=== PATIENT | female | born 1940 | race Caucasian/White ===

== ENCOUNTER 2020-01-17 13:24 | Inpatient (IN) | payer MEDICARE, OTHER ==
[~2020-01-17] VITALS: Ht 157.5 cm
[2020-01-17] MEDS ORDERED: ASPIRIN81 MG PO (13:32)
[2020-01-17] MEDS ORDERED: CALCIUM 600 +1 EAC3 PO (13:33)
[2020-01-17] MEDS ORDERED: MULTI-DAY VITAM1 TAB PO (13:33)
[2020-01-17] MEDS ORDERED: SYNTHROID75 MCG PO (13:34)
[2020-01-17] MEDS ORDERED: CELEXA10 MG PO (13:34)
[2020-01-17] MEDS ORDERED: LISINOPRIL20 MG PO (13:34)
[2020-01-17] MEDS ORDERED: LIPITOR20 MG PO (13:35)
--- NOTE | 2020-01-17 14:05 | NUR ---
C-COLLAR PLACED ON PATIENT PER DR. JESSICA, SMCs REMAIN INTACT AFTER COLLAR APPLIED, NO NEURO DEFICITS NOTED.
[2020-01-17 14:15] LABS: CALC OSMOLALITY 261 mosm/kg (275-300); CARBON DIOXIDE 25.3 mmol/L (21.0-32.0); CHLORIDE - SERUM 95 mmol/L (98-107); CREATININE - SERUM 0.9 mg/dL (0.6-1.3); GLUCOSE 131 mg/dL (74-106); POTASSIUM - SERUM 4.1 mmol/L (3.5-5.1); SODIUM 129 mmol/L (136-145); UREA NITROGEN 16 mg/dL (7-18); eGFR NON AFRICAN AMERICAN 64 mL/min (90-120)
[2020-01-17 14:21] LABS: BASOPHILS 0.2 % (0-2); EOSINOPHILS 0.6 % (0-7); HEMOGLOBIN 13.4 g/dL (12-16); IMMATURE GRANULOCYTES 0.4 % (0-5); LYMPHOCYTES 12.4 % (15-50); MCH 29.1 pg (26.0-34.0); MCHC 32.7 g/dL (31.0-37.0); MCV 88.9 fL (80.0-100.0); MEAN PLATELET VOLUME 9.9 fL (7.4-10.4); MONOCYTES 3.7 % (2-11); NEUTROPHILS 82.7 % (40-80); PLATELET COUNT 253 10x3/uL (130-400); RBC 4.61 10x6/uL (4.00-5.40); WBC 13.3 10x3/uL (4.8-10.8)
[2020-01-17 14:24] LABS: ALBUMIN 3.3 g/dL (3.4-5.0); ALKALINE PHOSPHATASE 177 U/L (30-120); ALT (SGPT) 16 U/L (10-68); BILIRUBIN - TOTAL 0.51 mg/dL (0.2-1.3); PROTEIN - SERUM 7.1 g/dL (6.4-8.2); TROPONIN-I < 0.017 ng/mL (0.000-0.060)
[2020-01-17 14:41] LABS: INR 0.96 (0.85-1.17); PROTIME 12.7 SECONDS (11.6-15.0)
[2020-01-17 14:42] LABS: APTT 35.6 SECONDS (22.8-39.4)
--- NOTE | 2020-01-17 16:20 | NUR ---
PATIENT TRANSFERRED TO 2219, JULIA C-SPINE STABILIZATION HELD DURING TRANSFER TO BED FROM STRETCHER, SMCs REMAIN INTACT AFTER TRANSFER TO BED, NO NEURO DEFICITS NOTED.
--- NOTE | 2020-01-17 16:30 | NUR ---
RECEIVED PT TO ROOM VIA STRETCHER AND ER STAFF. PT HAS COLLAR BRACE AROUND NECK, ALERT AND ORIENTED, PT TRANSFERRED TO BED WELL WITH 4 PERSON ASSIST TO MAKE SURE PT BODY ALLIGNED WHEN MOVING. PT STILL HAS PANTS ON AND GOWN. IV TO LEFT HAND NS AT 125. SITE CDI NO EDEMA SEEN IN LEGS, ATTEMPTED TO REMOVE PT'S PANTS BEFORE SURGERY UNABLE TO DO SO WITHOUT CERTAINTY OF NOT INJURING PATIENT ANY MORE THAN PT ALREADY INJURED. PT ON RA, STATED SHE IS NOT IN DISTRESS. PLACED CL ON PT CHEST BED IN LOWEST POSITION, CONTINUE WITH PLAN OF CARE
[2020-01-17 18:12] VITALS: BP 132/56
--- NOTE | 2020-01-17 19:26 | NUR ---
DESPITE HAVING NERVE BLOCK, PACU AND OR RNS ELECTED NOT TO PLACE LUE IN SLING TO AVOID ANY PRESSURE ON C-SPINE FROM SLING.
[2020-01-17 20:00] VITALS: BP 141/84
[2020-01-17 20:01] VITALS: BP 141/84
[2020-01-18] VITALS: BP 145/86
[2020-01-18 04:00] VITALS: BP 133/89
[2020-01-18 05:33] LABS: HEMATOCRIT 38.7 % (36.0-48.0); HEMOGLOBIN 12.7 g/dL (12-16)
--- NOTE | 2020-01-18 07:40 | NUR ---
SPOKE WITH DR. RICKS ABOUT NECK BRACE. STATED THAT DR. GHOTRA SHOULD PUT IT ON PATIENT BUT IF HE DOESNT COME BY DR. RICKS WILL COME BACK AND DO IT FOR HER. PATIENT IN BED WITH IV INTACT. NO COMPLAINTS OR SIGNS OF DISTRESS. CALL LIGHT WITHIN REACH.
[2020-01-18 09:00] VITALS: BP 112/73
--- NOTE | 2020-01-18 10:08 | HP ---
PATIENT: WINSTON CUNNINGHAM MEDICAL RECORD: [id number] ACCOUNT: [id number] LOCATION:D.MS [place]9 : 38 ADMISSION DATE: 01/17/20 PCP: No PCP HISTORY AND PHYSICAL EXAMINATION DATE OF ADMISSION: 01/17/2020 CHIEF COMPLAINT: Fall, fractured wrist and neck. HISTORY OF PRESENT ILLNESS: This is an 79-year-old female that I have followed for many years. She states she [place] and had to cross a shallow ditch and somehow fell. She complained of pain to the head and neck as well as a left wrist deformity. She was taken via EMS to the Emergency Department where she was found to have type 2 odontoid fracture and a C2 fracture. She was also found to have displaced left distal radius fracture. She is admitted. Consults have been placed with Dr. Drake and Dr. Vera. PAST MEDICAL HISTORY: The patient has a history of hypertension, hyperlipidemia, hypothyroidism, and depression. PAST SURGICAL HISTORY: Cataract repair. CURRENT MEDICATIONS: Include atorvastatin 20 mg once a day, aspirin 81 mg once a day. She takes fosinopril 20/HCTZ 12.5 once a day, citalopram 40 mg once a day, levothyroxine 75 mcg once a day. ALLERGIES: SULFA. HABITS: Never smoked. No alcohol or drugs. FAMILY HISTORY: Both parents are . SOCIAL HISTORY: She is , lives alone, retired. REVIEW OF SYSTEMS: GENERAL: No major weight changes. HEENT: No particular sinus or allergy problems. RESPIRATORY: No history of asthma or emphysema. CARDIAC: No history of heart trouble. GASTROINTESTINAL: No significant diarrhea, constipation, or heartburn. GENITOURINARY: No significant urinary infections or problems. MUSCULOSKELETAL: No significant problems there. PHYSICAL EXAMINATION: VITAL SIGNS: Temperature 98.2, pulse 106, respirations 16, blood pressure 141/84. GENERAL: She is in no acute distress. She is postop ORIF of left wrist. HEENT: Grossly within normal limits. NECK: She is in a hard collar and so further exam was not done. HEART: Regular rate and rhythm. LUNGS: Clear. ABDOMEN: Soft. EXTREMITIES: No edema. The left wrist is in a dressing. NEUROLOGIC: She is awake and alert. HISTORY AND PHYSICAL [id number] WINSTON CUNNINGHAM LABORATORY DATA: CBC with a white count of 13,300, hemoglobin 13.4. Sodium 129, potassium 4.1, chloride 95, CO2 25.3, BUN 16, creatinine 0.9, glucose 131, calcium 9.0. Liver functions were okay. Troponin is less than 0.017. INR 0.96. DIAGNOSTIC DATA: Cervical spine CT showed type 2 odontoid fracture and fracture lateral mass of C1 on the left with mild extension into the left foramen transversarium. CT of the head shows no intracranial abnormality. Chest x-ray shows atelectasis. X-ray of the left wrist shows displaced fracture of the left radius consistent with Colles fracture. ASSESSMENT: Fall with left distal radius fracture and neck fracture. PLAN: Dr. Drake has taken her to the OR for ORIF of the left wrist. Dr. Vera is consulted for the neck fracture. Other tests and procedures as warranted. TRANSINT:[id number] Voice Confirmation ID: [id number] DOCUMENT ID: [id number] ANUPAM HAWKINS MD at 1008 CC: [id number] DICTATION DATE: 01/18/20932 COUNTY ASSESSOR: 01/18/20 0954 ADM IN [facility] [address] [place] [address]
[2020-01-18] MEDS ORDERED: FOSINOPRIL-HCT1 EAC1 PO (10:10)
[2020-01-18] MEDS ORDERED: LIPITOR10 MG PO (10:10)
[2020-01-18] MEDS ORDERED: CELEXA40 MG PO (10:11)
[2020-01-18 11:32] VITALS: Ht 157.5 cm
[2020-01-18 13:20] VITALS: BP 133/86
--- NOTE | 2020-01-18 15:11 | NUR ---
Abrasions and bruises noted sporatically over body. She is in a hard collar. Left wrist is wrapped/had ORIF 01/16. Wound care will monitor as needed.
[2020-01-18 16:00] VITALS: BP 145/76
--- NOTE | 2020-01-18 18:55 | NUR ---
PATIENT IN BED WITH IV INTACT. NO COMPLAINTS OR SIGNS OF DISTRESS. DRESSING TO ARM CDI. NECK BRACE ON AT THIS TIME. DR. RICKS AND JESSICA CHANGED BRACE THIS AM. BSCDS ON AND WORKING. CALL LIGHT WITHIN REACH.
[2020-01-18 20:00] VITALS: BP 141/62
--- NOTE | 2020-01-18 20:00 | NUR ---
PATIENT RESTING IN BED, HOB 40 DEGREES. NO S/S OF ACUTE DISTRESS. NO C/O AT THIS TIME. PATIENT IS ON 4L NASAL CANNULA. PATIENT HAS IV IN RIGHT WRIST, 1/2 NORMAL SALINE @ 50 ML/HR. IV IS PATENT WITHOUT REDNESS, SWELLING, OR TENDERNESS. PATIENT HAS TELEMETRY: 75 SINUS RYTHM. PATIENT LEFT WRIST IS IN A CAST. PATIENT NECK IS IN A BRACE DUE TO C1 FX. PATIENT IS USING BED MODI. CALL LIGHT WITHIN REACH. WILL CONTINUE TO MONITOR.
--- NOTE | 2020-01-18 23:59 | NUR ---
HIGHWAY ENGINEERING TEACHER CALLED AND MED SURG II WAS IN NEED TO TELEMETRY. PER JAIME SHE ASKED FOR ME TO DC SINCE PATIENT HAS NO HEART HX. CALL LIGHT WITHIN REACH. WILL CONTINUE TO MONITOR.
[2020-01-19] VITALS: BP 136/59
[2020-01-19 04:00] VITALS: BP 148/67
--- NOTE | 2020-01-19 04:17 | NUR ---
I have reviewed this patient and I concur with the Shift Assessment completed by the Licensed Practical Nurse today this shift.
[2020-01-19 06:38] LABS: HEMATOCRIT 38.3 % (36.0-48.0); HEMOGLOBIN 12.5 g/dL (12-16)
[2020-01-19 08:00] VITALS: BP 141/65
--- NOTE | 2020-01-19 08:00 | NUR ---
ASSESSMENT PER FLOW SHEET. PATIENT IS WITHOUT DISTRESS.FALL PREVENTION WITH MARIBELL.ASSIST WITH BEDPAN. DOOR OPEN TO MONITOR
[2020-01-19 12:00] VITALS: BP 144/62
[2020-01-19 16:00] VITALS: BP 144/65
[2020-01-19 17:17] LABS: BILIRUBIN NEGATIVE (NEGATIVE); GLUCOSE NEGATIVE (NEGATIVE); KETONE SMALL mg/dL (NEGATIVE); NITRITE NEGATIVE (NEGATIVE); UROBILINOGEN NORMAL (NORMAL)
[2020-01-19 17:19] LABS: RED CELLS - URINE 0-5 /hpf (0-5)
[2020-01-19 17:20] LABS: BACTERIA FEW /hpf (NEGATIVE); EPITHELIAL CELLS 0-5 /hpf (0-5)
--- NOTE | 2020-01-19 18:54 | NUR ---
REMAINS WITHOUT NEEDS,WITHOUT CHANGE. CONT PLAN OF CARE
[2020-01-19 20:00] VITALS: BP 150/63
--- NOTE | 2020-01-19 20:00 | NUR ---
PATIENT IS IN BED WITH EYES CLOSED. NO S/S OF ACUTE DISTRESS. NO C/O AT THIS TIME. PATIENT HAS A RIGHT HAND IV, NORMAL SALINE @ 50 ML/HR. IV IS PATENT WITHOUT REDNESS, SWELLING, OR TENDERNESS. PATIENT HAS A CAST ON LEFT HAND AND BRUISING TO ALL THE FINGERS ON THE LEFT HAND. PATIENT IS IN A NECK BRACE BECAUSE OF A C1 FX. PATIENT USES BED MODI. CALL LIGHT IN PLACE. BED ALARM ON. WILL CONTINUE TO MONITOR.
[2020-01-20] VITALS: BP 145/67
--- NOTE | 2020-01-20 03:01 | NUR ---
I have reviewed this patient and I concur with the Shift Assessment completed by the Licensed Practical Nurse today this shift.
[2020-01-20 04:00] VITALS: BP 165/70
[2020-01-20 05:34] LABS: HEMATOCRIT 38.6 % (36.0-48.0); HEMOGLOBIN 12.5 g/dL (12-16)
[2020-01-20 08:00] VITALS: BP 141/75
--- NOTE | 2020-01-20 08:00 | NUR ---
ASSESSMENT PER FLOW SHEET. PATIENT IS WITHOUT DISTRESS. ASSIST UP TO CHAIR.FALL PREVENTION IN PLACE
[2020-01-20 12:00] VITALS: BP 144/68
--- NOTE | 2020-01-20 14:30 | NUR ---
PAGE TO RN ON SITE. PATIENT COMPLAINS OF SEVERE HEADACHE,SHORTNESS OF BREATH. AND STARTS SWEATING WITH DIZZINESS.
--- NOTE | 2020-01-20 15:10 | NUR ---
rehab prescreen: thank you for this eval, we are monitoring this patient and her progress unsure is she is going to be approiate for irf she may need a more termite control representative rehab facility. will notify after it has been discussed with case management. once again thank you for this eval. nithya brunner clinical liasion
--- NOTE | 2020-01-20 15:32 | NUR ---
RE PAGE TO MANAGER HOSPITALITY.
[2020-01-20 15:52] VITALS: BP 131/65
[2020-01-20 16:34] LABS: ANION GAP 12.3 mmol/L (8-16); CALCIUM 8.1 mg/dL (8.5-10.1); CARBON DIOXIDE 23.4 mmol/L (21.0-32.0); CREATININE - SERUM 0.8 mg/dL (0.6-1.3); POTASSIUM - SERUM 3.7 mmol/L (3.5-5.1)
[2020-01-20 16:44] LABS: BASOPHILS 0.1 % (0-2); EOSINOPHILS 0.2 % (0-7); HEMATOCRIT 41.1 % (36.0-48.0); HEMOGLOBIN 13.9 g/dL (12-16); IMMATURE GRANULOCYTES 0.4 % (0-5); LYMPHOCYTES 11.3 % (15-50); MCH 29.6 pg (26.0-34.0); MCHC 33.8 g/dL (31.0-37.0); MCV 87.4 fL (80.0-100.0); MEAN PLATELET VOLUME 10.3 fL (7.4-10.4); MONOCYTES 3.7 % (2-11); NEUTROPHILS 84.3 % (40-80); RDW 12.6 % (11.5-14.5); WBC 13.7 10x3/uL (4.8-10.8)
[2020-01-20 16:45] LABS: PLATELET COUNT 163 10x3/uL (130-400)
--- NOTE | 2020-01-20 17:49 | NUR ---
PATIENT REMAINS WITHOUT DISTRESS.PAGE TO SPANISH INTERPRETER/TRANSLATOR TO REPORT LABS,TELEMETRY, AND EKG.
[2020-01-20 20:00] VITALS: BP 109/52
--- NOTE | 2020-01-20 20:00 | NUR ---
AAOX4. ASSESSMENT COMPLETE, SEE CHART. CURRENTLY HAS RIGHT FOREARM IV THAT IS PATENT NS @ 50. PATIENT DENIES PAIN AT THIS TIME. CURRENTLY WEARING CERVICAL COLAR AND HAS MELISA WRAP TO THE LEFT WRIST. PALPABLE PULSES AND LESS THAN THREE SECOND CAPILLARY REFILL IN UPPER EXTREMETIES. CURRENTLY WEARING 4L NC. ASSISTED WITH BEDPAN. DENIES FURTHER NEEDS AT THIS TIME. HAS CALL LIGHT CLOSE. CPOC.
[2020-01-21 00:10] VITALS: BP 102/56
--- NOTE | 2020-01-21 00:21 | NUR ---
RESTING WITH NO SIGNS OR SYMPTOMS OF DISTRESS. CALL LIGHT CLOSE. CPOC.
[2020-01-21 05:16] VITALS: BP 98/62
--- NOTE | 2020-01-21 05:26 | NUR ---
ADMINISTERING AM LEVOTHYROXINE WHEN PATIENT ASKED FOR PAIN MEDICINE. RETRIEVED PAIN MEDICINE AND PATIENT STATES THAT IT MAKES HER "LOOPY" BUT IS EFFECTIVE FOR PAIN. PATIENT STATED SHE WOULD LIKE TO TAKE HALF OF THE DOSE TO "SEE HOW THAT WORKS". ADMINISTERED 0.5 OF PERCOCET 10. WASTED OTHER HALF IN RXDESTROYER AND PYXIS WITH RAMILA MARIN, CHARGE NURSE.
[2020-01-21 06:55] LABS: CALCIUM 8.5 mg/dL (8.5-10.1); CREATININE - SERUM 0.8 mg/dL (0.6-1.3); POTASSIUM - SERUM 3.4 mmol/L (3.5-5.1)
[2020-01-21 06:57] LABS: CARBON DIOXIDE 31.4 mmol/L (21.0-32.0)
[2020-01-21 08:00] VITALS: BP 147/61
--- NOTE | 2020-01-21 08:00 | NUR ---
ASSESSMENT PER FLOW SHEET. PATIENT IS WITHOUT DISTRESS.FALL PREVENTION IN PLACE.DOOR OPEN,MONITOR.
[2020-01-21 12:00] VITALS: BP 128/65
[2020-01-21 16:00] VITALS: BP 130/57
--- NOTE | 2020-01-21 18:22 | NUR ---
PAIN CONTROLLED WITH PO PAIN MEDS ORDERED.WITHOUT CHANGE.CONT PLAN OF CARE
[2020-01-21 20:00] VITALS: BP 137/57
[2020-01-22] VITALS: BP 161/73
--- NOTE | 2020-01-22 01:10 | NUR ---
RESTING IN BED WITHNO S/S OF DISTRESS C CALLER IN PLACE CALL LIGHT IN REACH WATER IN REACH.CHECKED OFTEN FOR NEEDS AND SAFETY.
[2020-01-22 04:00] VITALS: BP 151/69
--- NOTE | 2020-01-22 07:59 | NUR ---
pt lying in bed awake, states she is having pain this morning and requests pain medication with morning meds, pt k+ is 3.4 will replete k+ also. no other needs at this time, continue with plan of care
[2020-01-22 09:07] VITALS: BP 154/62
[2020-01-22 12:26] VITALS: BP 140/59
[2020-01-22 17:10] VITALS: BP 141/56
--- NOTE | 2020-01-22 18:45 | NUR ---
I have reviewed this patient and I concur with the Shift Assessment completed by the Licensed Practical Nurse today this shift.
[2020-01-22 20:37] VITALS: BP 135/76
[2020-01-23 06:48] VITALS: BP 124/55
[2020-01-23 08:08] VITALS: BP 151/67
--- NOTE | 2020-01-23 09:57 | NUR ---
PT LYING IN BED STATED SHE NEEDED HELP WITH HER BREAKFAST AND NO ONE WAS AVAILABLE, PLACED PT CALL LIGHT IN REACH, ASKED IF I COULD POSSIBLY GET HER ANYTHING ELSE TO EAT, PT STATED SHE WAS FINE RIGHT NOW, PT DAUGHTER AT BEDSIDE, INQUIRED ON REHAB PLACEMENT. TOLD HER THAT CASE MANAGEMENT WILL BE BY TO DISCUSS WITH HER. NO OTHER NEEDS AT THIS TIME. CONTINUE WITH PLAN OF CARE
--- NOTE | 2020-01-23 10:41 | MORECARE ---
CASE MANAGEMENT DISCHARGE SUMMARY PATIENT: WINSTON CUNNINGHAM UNIT: [id number] ADM DATE: 01/17/20 AGE: 79 : 38 SEX: F ROOM/BED: D.2219 AUTHOR: PRATEEK INIGUEZ PHYSICIAN: REFERRING PHYSICIAN: ANUPAM HAWKINS MD DATE OF SERVICE: 01/23/20 Discharge Plan Patient Name: WINSTON CUNNINGHAM Facility: [facility]:[place] : 1940 Planned Disposition: Inpatient Rehab Anticipated Discharge Date: Discharge Date: Expected LOS: Initial Reviewer: [email or web address] Initial Review Date: 01/17/2020 Generated: 01/23/20 11:40 am External Providers External Provider: [facility] Contact Date: Service Request Date: Service Type: Resolution: Reviewer: Comments: Patient Name: WINSTON CUNNINGHAM Page [phone] at 1041 All edits/amendments must be made on the electronic document DICTATION DATE: 01/23/20 1040 RIVETER AUTOMOBILE BRAKES: GERMAINE 01/23/20 1040 RPT#: [id number] DC DATE: STATUS: ADM IN [facility] [address] [place] [address] END OF REPORT
--- NOTE | 2020-01-23 10:49 | MORECARE ---
CASE MANAGEMENT DISCHARGE SUMMARY PATIENT: WINSTON CUNNINGHAM UNIT: [id number] ADM DATE: 01/17/20 AGE: 79 : 38 SEX: F ROOM/BED: D.6345 AUTHOR: PRATEEK INIGUEZ PHYSICIAN: REFERRING PHYSICIAN: ANUPAM HAWKINS MD DATE OF SERVICE: 01/23/20 Discharge Plan Patient Name: WINSTON CUNNINGHAM Facility: [facility]:[place] : 1940 Planned Disposition: Inpatient Rehab Anticipated Discharge Date: Discharge Date: Expected LOS: Initial Reviewer: [email or web address] Initial Review Date: 01/17/2020 Generated: 01/23/20 11:48 am Comments DCP- Discharge Planning Updated by [email or web address]: Marlen Gilmore on 01/23/20 9:[address] Patient Name: WINSTON CUNNINGHAM Admission Status: ER Accout number: [id number] Admission Date: 01-17-2020 : 1940 Admission Diagnosis:UNSP FRACTURE OF THE LOWER END OF LEFT RADIUS, INIT Attending: ANUPAM HAWKINS Current LOS: 6 Anticipated DC Date: Planned Disposition: Inpatient Rehab Primary Insurance: MEDICARE A & B Discharge Planning Comments: CM met with patient to complete initial dc planning assessment. CM educated patient on the CM role and verbal consent given by patient to complete assessment. Patient lives at home where her son live there off and on. She is independent with her care. At discharge patient plans to return home after inpatient rehab and feels this is a safe discharge. CM discussed availability of home health, rehab services, and medical equipment. She would like to go to inpatient rehab at [facility], [place] signed and placed in chart. IMM served and explained. Referral sent to [facility] inpatient rehab. She uses a cane at home, but that is it. Patient denied known discharge needs at this time. CM will continue to follow and will assist as needed with dc plans/needs. Link Machine Operator: Marlen Gilmore DCPIA - Discharge Planning Initial Assessment Updated by [email or web address]: Marlen Gilmore on 01/23/20 10:40 am * Is the patient Alert and Oriented? Yes * How many steps to enter\exit or inside your home? * PCP SHRUTHI * [facility]acy [facility] * Preadmission Environment Home with Family * ADLs Independent * Equipment None * List name and contact numbers for known caregivers / representatives who currently or will assist patient after discharge: JESENIA (DAUGHTER) [phone] * Verbal permission to speak to the caregivers and representatives has been obtained from the patient. N/A * Community resources currently utilized None * Additional services required to return to the preadmission environment? Yes * Can the patient safely return to the preadmission environment? Yes * Has this patient been hospitalized within the prior 30 days at any hospital? No Coverage Notice Reviewer: [email or web address] Gilmore Notice Issued Date-Time: 01/23/2020 10:20 Notice Type: IM Discharge Notice Notice Delivered To: Patient Relationship to Patient: Adjunct Latin Professor Name: Delivery Method: HAND - Hand Delivered Huong Days: Prior Verbal Notification: Recipient Understood Notice: Yes Recipient Signature: Yes Med Rec Note Co-signed by Attending: Coverage Notice Comment: Reviewer: [id number] Gilmore Notice Issued Date-Time: 01/23/2020 10:20 Notice Type: Patient Choice Letter Notice Delivered To: Patient Relationship to Patient: Adjunct Latin Professor Name: Delivery Method: HAND - Hand Delivered Huong Days: Prior Verbal Notification: Recipient Understood Notice: Yes Recipient Signature: Yes Med Rec Note Co-signed by Attending: Coverage Notice Comment: [facility] inpatient rehab Last DP export: 01/23/20 9:41 a Patient Name: WINSTON CUNNINGHAM Page 18156 at 1049 All edits/amendments must be made on the electronic document DICTATION DATE: 01/23/20 1049 HAM SAWYER: GERMAINE 01/23/20 1049 RPT#: [id number] DC DATE: STATUS: ADM IN [facility] [address] [place] [address] END OF REPORT
--- NOTE | 2020-01-23 12:27 | NUR ---
I have reviewed this patient and I concur with the Shift Assessment completed by the Licensed Practical Nurse today this shift.
[2020-01-23 12:29] VITALS: BP 149/62
[2020-01-23] MEDS ORDERED: HYDROCODON-ACE1 EA10 PO (15:13)
--- NOTE | 2020-01-23 15:30 | MORECARE ---
CASE MANAGEMENT DISCHARGE SUMMARY PATIENT: WINSTON CUNNINGHAM UNIT: [id number] ADM DATE: 01/17/20 AGE: 79 : 38 SEX: F ROOM/BED: D.2219 AUTHOR: PRATEEK INIGUEZ PHYSICIAN: REFERRING PHYSICIAN: ANUPAM HAWKINS MD DATE OF SERVICE: 01/23/20 Discharge Plan Patient Name: WINSTON CUNNINGHAM Facility: [facility]:[place] : 1940 Planned Disposition: Inpatient Rehab Anticipated Discharge Date: Discharge Date: Expected LOS: Initial Reviewer: [email or web address] Initial Review Date: 01/17/2020 Generated: 01/23/20 4:30 pm Comments DCP- Discharge Planning Updated by [id number]: Marlen Gilomre on 01/23/20 2:[address] PATIENT HAS BEEN ACCEPTED TO [facility] INPATIENT REHAB THEY WILL PROVIDE TRANSPORATION HER DAUGHTER IS AT HER BEDSIDE AND IS AWARE CM TO FOLLOW AND ASSIST NEEDED DCP- Discharge Planning Updated by [id number]: Marlen Gilmore on 01/23/20 9:[address] Patient Name: WINSTON CUNNINGHAM Admission Status: ER Accout number: [id number] Admission Date: 01-17-2020 : 1940 Admission Diagnosis:UNSP FRACTURE OF THE LOWER END OF LEFT RADIUS, INIT Attending: ANUPAM HAWKINS Current LOS: 6 Anticipated DC Date: Planned Disposition: Inpatient Rehab Primary Insurance: MEDICARE A & B Discharge Planning Comments: CM met with patient to complete initial dc planning assessment. CM educated patient on the CM role and verbal consent given by patient to complete assessment. Patient lives at home where her son live there off and on. She is independent with her care. At discharge patient plans to return home after inpatient rehab and feels this is a safe discharge. CM discussed availability of home health, rehab services, and medical equipment. She would like to go to inpatient rehab at [facility], JO[place] signed and placed in chart. IMM served and explained. Referral sent to [facility] inpatient rehab. She uses a cane at home, but that is it. Patient denied known discharge needs at this time. CM will continue to follow and will assist as needed with dc plans/needs. Society Reporter: Marlen Gilmore DCPIA - Discharge Planning Initial Assessment Updated by [email or web address]: Marlen Gilmore on 01/23/20 10:40 am * Is the patient Alert and Oriented? Yes * How many steps to enter\exit or inside your home? * PCP SHRUTHI * [facility] * Preadmission Environment Home with Family * ADLs Independent * Equipment None * List name and contact numbers for known caregivers / representatives who currently or will assist patient after discharge: JESENIA (DAUGHTER) [phone] * Verbal permission to speak to the caregivers and representatives has been obtained from the patient. N/A * Community resources currently utilized None * Additional services required to return to the preadmission environment? Yes * Can the patient safely return to the preadmission environment? Yes * Has this patient been hospitalized within the prior 30 days at any hospital? No Coverage Notice Reviewer: [id number] Carole Gilmore Notice Issued Date-Time: 01/23/2020 10:20 Notice Type: IM Discharge Notice Notice Delivered To: Patient Relationship to Patient: Wall Washer Name: Delivery Method: HAND - Hand Delivered Huong Days: Prior Verbal Notification: Recipient Understood Notice: Yes Recipient Signature: Yes Med Rec Note Co-signed by Attending: Coverage Notice Comment: Reviewer: [id number] Carole Gilmore Notice Issued Date-Time: 01/23/2020 10:20 Notice Type: Patient Choice Letter Notice Delivered To: Patient Relationship to Patient: Wall Washer Name: Delivery Method: HAND - Hand Delivered Huong Days: Prior Verbal Notification: Recipient Understood Notice: Yes Recipient Signature: Yes Med Rec Note Co-signed by Attending: Coverage Notice Comment: [facility] inpatient rehab Last DP export: 01/23/20 9:49 a Patient Name: WINSTON CUNNINGHAM Page [phone] at 1530 All edits/amendments must be made on the electronic document DICTATION DATE: 01/23/20 1530 EXEC. CREATIVE DIRECTOR: GERMAINE 01/23/20 1530 RPT#: [id number] DC DATE: STATUS: ADM IN [facility] [address] [place] [address] END OF REPORT
--- NOTE | 2020-01-23 17:04 | NUR ---
CALLED AND GAVE REPORT TO BENJY, PT WAS TAKEN TO [facility] BY PATIENT COORDINATOR, NO OTHER NEEDS AT THIS TIME
--- NOTE | 2020-01-24 07:33 | MORECARE ---
CASE MANAGEMENT DISCHARGE SUMMARY PATIENT: WINSTON CUNNINGHAM UNIT: [id number] ADM DATE: 01/17/20 AGE: 79 : 38 SEX: F ROOM/BED: D.2219 AUTHOR: PRATEEK INIGUEZ PHYSICIAN: REFERRING PHYSICIAN: ANUPAM HAWKINS MD DATE OF SERVICE: 01/24/20 Discharge Plan Patient Name: WINSTON CUNNINGHAM Facility: [facility]:[place] : 1940 Planned Disposition: Inpatient Rehab Anticipated Discharge Date: Discharge Date: 01/23/2020 Expected LOS: 0 Initial Reviewer: [email or web address] Initial Review Date: 01/17/2020 Generated: 01/24/20 8:32 am Comments DCP- Discharge Planning Updated by [email or web address]: Marlen Gilmore on 01/23/20 2:[address] PATIENT HAS BEEN ACCEPTED TO [facility] INPATIENT REHAB THEY WILL PROVIDE TRANSPORATION HER DAUGHTER IS AT HER BEDSIDE AND IS AWARE CM TO FOLLOW AND ASSIST NEEDED DCP- Discharge Planning Updated by [email or web address]: Marlen Gilmore on 01/23/20 9:[address] Patient Name: WINSTON CUNNINGHAM Admission Status: ER Accout number: [id number] Admission Date: 01-17-2020 : 1940 Admission Diagnosis:UNSP FRACTURE OF THE LOWER END OF LEFT RADIUS, INIT Attending: ANUPAM HAWKINS Current LOS: 6 Anticipated DC Date: Planned Disposition: Inpatient Rehab Primary Insurance: MEDICARE A & B Discharge Planning Comments: CM met with patient to complete initial dc planning assessment. CM educated patient on the CM role and verbal consent given by patient to complete assessment. Patient lives at home where her son live there off and on. She is independent with her care. At discharge patient plans to return home after inpatient rehab and feels this is a safe discharge. CM discussed availability of home health, rehab services, and medical equipment. She would like to go to inpatient rehab at [facility], JO[place] signed and placed in chart. IMM served and explained. Referral sent to [facility] inpatient rehab. She uses a cane at home, but that is it. Patient denied known discharge needs at this time. CM will continue to follow and will assist as needed with dc plans/needs. P[employer]aser [employer]: Marlen Gilmore DCPIA - Discharge Planning Initial Assessment Updated by [id number]: Marlen Gilmore on 01/23/20 10:40 am * Is the patient Alert and Oriented? Yes * How many steps to enter\exit or inside your home? * PCP SHRUTHI * [facility]acy [facility] * Preadmission Environment Home with Family * ADLs Independent * Equipment None * List name and contact numbers for known caregivers / representatives who currently or will assist patient after discharge: JESENIA (DAUGHTER) [phone] * Verbal permission to speak to the caregivers and representatives has been obtained from the patient. N/A * Community resources currently utilized None * Additional services required to return to the preadmission environment? Yes * Can the patient safely return to the preadmission environment? Yes * Has this patient been hospitalized within the prior 30 days at any hospital? No Coverage Notice Reviewer: [email or web address] Carole Gilmore Notice Issued Date-Time: 01/23/2020 10:20 Notice Type: IM Discharge Notice Notice Delivered To: Patient Relationship to Patient: Admissions Assistant Name: Delivery Method: HAND - Hand Delivered Huong Days: Prior Verbal Notification: Recipient Understood Notice: Yes Recipient Signature: Yes Med Rec Note Co-signed by Attending: Coverage Notice Comment: Reviewer: [email or web address] Carole Gilmore Notice Issued Date-Time: 01/23/2020 10:20 Notice Type: Patient Choice Letter Notice Delivered To: Patient Relationship to Patient: Admissions Assistant Name: Delivery Method: HAND - Hand Delivered Huong Days: Prior Verbal Notification: Recipient Understood Notice: Yes Recipient Signature: Yes Med Rec Note Co-signed by Attending: Coverage Notice Comment: [facility] inpatient rehab Last DP export: 01/23/20 2:30 p Patient Name: WINSTON CUNNINGHAM Page [phone] at 0733 All edits/amendments must be made on the electronic document DICTATION DATE: 01/24/20731 RACE AND SPORTS BOOK WRITER: GERMAINE 01/24/20731 RPT#: [id number] DC DATE:01/23/20 STATUS: DIS IN [facility] [address] [place] [address] END OF REPORT
--- NOTE | 2020-01-25 08:44 | OP ---
PATIENT NAME: WINSTON CUNNINGHAM MEDICAL RECORD: [id number] :36 LOCATION:D.MS [id number] ADMISSION DATE:01/17/20 SURGEON: JOSE RICSK MD DATE OF OPERATION: 01/17/2020 PREOPERATIVE DIAGNOSES: 1. Displaced left distal radius fracture. 2. Type 2 odontoid fracture with extension into the lateral mass. 3. Early carpal tunnel syndrome. POSTOPERATIVE DIAGNOSES: 1. Displaced left distal radius fracture. 2. Type 2 odontoid fracture with extension into the lateral mass. PROCEDURE: Open reduction internal fixation of the left distal radius with carpal tunnel release. SUMMARY OF PATHOLOGIC FINDINGS: The patient's C-spine precautions were carried out. The patient was left in a cervical collar for the entirety of the case. OPERATIVE SUMMARY IN DETAIL: After obtaining the appropriate preoperative orthopedic surgery consent as well as anesthetic consultation, evaluation and clearance, the patient was brought to the operating room and placed on the operating table in supine position. After adequate general laryngeal mask airway was administered, tourniquet was placed about the proximal aspect of the left upper extremity. Left upper extremity was then prepped and draped in routine sterile fashion. The arm was elevated and exsanguinated, tourniquet was inflated to 250 mmHg. A curvilinear incision was made in keeping with the Darryl's volar approach. This was taken down to the level of the transverse carpal ligament, which was incised in its entirety under direct visualization. Median nerve was identified. Flexor carpi radialis was identified. Incision was carried out. Median nerve was reflected and the fracture was exposed. The [place] VariAx plate was then put into place under fluoroscopy and pinned provisionally. Serial and sequential drill and fill was then done after the fracture had been reduced. This was done with both combination of compression and locking screws. This did result in anatomic samaritan of the patient's distal radius. Radiographs were taken and submitted both AP and lateral planes for final radiologist review. The wound was then copiously irrigated, closed with 2-0 Vicryl followed by 4-0 Prolene in a running fashion. Sterile dressings were applied. Tourniquet was deflated. The small volar splint was applied. The patient was awakened and taken to recovery room in stable condition. All final needle and sponge counts were correct. TRANSINT:[id number] Voice Confirmation ID: [id number] DOCUMENT ID: [id number] 01/24/2020 Edited for date, dmm. MILLICENT KELLY, JOSE PRICE at 0844 CC: [id number] DICTATION DATE: 01/22/20 1629 ART CLASS MODEL: 01/22/20 2334 DIS IN 01/23/[address] [facility] [address] [id number]
== END 2020-01-23 18:33 | DRG 511 ==
LOC: D.ER 13:24 → D.MS 15:24
PROVIDERS: Family Medicine; Orthopaedic Surgery; ADMIT Family Medicine; ATTEND Family Medicine
PROC: 0PSH04Z Reposition Right Radius with Internal Fixation Device, Open Approach (ICD-10-PCS; principal; 2020-01-17 15:45)
DX: S52.502A Unspecified fracture of the lower end of left radius, initial encounter for closed fracture (principal); S12.000A Unspecified displaced fracture of first cervical vertebra, initial encounter for closed fracture; S12.110A Anterior displaced Type II dens fracture, initial encounter for closed fracture; W19.XXXA Unspecified fall, initial encounter; Y93.9 Activity, unspecified; Y92.009 Unspecified place in unspecified non-institutional (private) residence as the place of occurrence of the external cause; I10 Essential (primary) hypertension; E78.5 Hyperlipidemia, unspecified; E03.9 Hypothyroidism, unspecified

== ENCOUNTER → 2020-02-14 14:37 | Outpatient (CLI) | payer MEDICARE, OTHER ==
[~2020-02-14 14:37] MED LIST: ASPIRIN81 MG PO; CALCIUM 600 +1 EAC3 PO; CELEXA10 MG PO; CELEXA40 MG PO; FOSINOPRIL-HCT1 EAC1 PO; HYDROCODON-ACE1 EA10 PO; KLOR-CON 1010 MEQ PO; LIPITOR10 MG PO; LIPITOR20 MG PO; LISINOPRIL20 MG PO; MACROBID100 MG PO; MULTI-DAY VITAM1 TAB PO; SYNTHROID75 MCG PO; THERMOTABS 1 GM1 GM PO; VOLTAREN100 GM TOPICAL
== END | disposition home or self-care (01) ==
LOC: D.CT 14:30
PROVIDERS: ATTEND Family Medicine
DX: T14.90XA Injury, unspecified, initial encounter (principal); W19.XXXA Unspecified fall, initial encounter

== ENCOUNTER 2020-02-16 05:18 | Inpatient (IN) | payer MEDICARE, OTHER ==
[~2020-02-16] VITALS: Ht 157.5 cm; Wt 72.6 kg
[~2020-02-16 05:18] MED LIST changes: -KLOR-CON 1010 MEQ PO; -MACROBID100 MG PO; -THERMOTABS 1 GM1 GM PO; -VOLTAREN100 GM TOPICAL
[2020-02-16] MEDS ORDERED: MACROBID100 MG PO (05:28)
[2020-02-16] MEDS ORDERED: VOLTAREN100 GM TOPICAL (05:29)
[2020-02-16] MEDS ORDERED: KLOR-CON 1010 MEQ PO (05:29)
[2020-02-16] MEDS ORDERED: THERMOTABS 1 GM1 GM PO (05:29)
--- NOTE | 2020-02-16 05:30 | NUR ---
SPOKE WITH RAMILA BRISCOE FROM [facility] STATES THAT PT HAS BEEN GROWING INCREASINGLY CONFUSED X 5 DAYS, CURRENTLY BEING TREATED FOR UTI WITH BACTRIM HAS HAD APPROXIMATELY 3 DOSES. PT ALSO DX'D WITH AND BEING TREATED FOR HYPONATREMIA. PT IN [facility] AFTER A PREVIOUS FALL WHICH RESULTED IN HER CERVICAL FX. PT SUPPOSED TO KEEP C COLLAR ON AT ALL TIMES, NURSE STATES PT HAS BEEN TAKING C COLLAR OFF SINCE BECOMING CONFUSED. PT HAD UNWITNESS FALL THIS AM AT APPROXIMATELY 0430 WITH C COLLAR OFF. PT C/O HEAD AND NECK PAIN. PERIORBITAL BRUISING NURSE STATES IS NEW SINCE THIS FALL THIS AM.
--- NOTE | 2020-02-16 05:44 | NUR ---
PT TO RADIOLOGY VIA STRETCHER.
[2020-02-16 06:12] LABS: APTT 35.1 SECONDS (22.8-39.4); INR 1.02 (0.85-1.17); PROTIME 13.4 SECONDS (11.6-15.0)
[2020-02-16 06:37] LABS: BASOPHILS 0.6 % (0-2); EOSINOPHILS 1.6 % (0-7); HEMATOCRIT 39.9 % (36.0-48.0); HEMOGLOBIN 13.2 g/dL (12-16); IMMATURE GRANULOCYTES 0.2 % (0-5); LYMPHOCYTES 17.1 % (15-50); MCH 29.2 pg (26.0-34.0); MCHC 33.1 g/dL (31.0-37.0); MCV 88.3 fL (80.0-100.0); MEAN PLATELET VOLUME 10.3 fL (7.4-10.4); MONOCYTES 5.2 % (2-11); NEUTROPHILS 75.3 % (40-80); RBC 4.52 10x6/uL (4.00-5.40); RDW 12.8 % (11.5-14.5); WBC 10.4 10x3/uL (4.8-10.8)
[2020-02-16 06:39] LABS: ALBUMIN 3.7 g/dL (3.4-5.0); ANION GAP 13.2 mmol/L (8-16); BILIRUBIN - TOTAL 0.87 mg/dL (0.2-1.3); CARBON DIOXIDE 26.8 mmol/L (21.0-32.0); CREATININE - SERUM 0.9 mg/dL (0.6-1.3); MAGNESIUM - SERUM 1.7 mg/dL (1.8-2.4); PROTEIN - SERUM 6.8 g/dL (6.4-8.2); THYROID STIMULATING HORMONE 1.38 uIU/mL (0.36-3.74); TROPONIN-I 0.023 ng/mL (0.000-0.060)
[2020-02-16 06:40] LABS: PLATELET COUNT 270 10x3/uL (130-400)
--- NOTE | 2020-02-16 07:10 | NUR ---
CONTACTED RAMILA BRISCOE AT [facility] AND INFORMED THAT PT IS GOING TO BE ADMITTED.
[2020-02-16 07:15] VITALS: BP 139/61
--- NOTE | 2020-02-16 07:45 | NUR ---
PT TO MRI AT THIS TIME. PT WILL GO TO 2206 UPON COMPLETION OF MRI.
[2020-02-16 08:17] LABS: BACTERIA FEW /hpf (NEGATIVE); BILIRUBIN NEGATIVE (NEGATIVE); EPITHELIAL CELLS 0-5 /hpf (0-5); GLUCOSE NEGATIVE (NEGATIVE); HYALINE CAST OCC /lpf (NONE SEEN); KETONE MODERATE mg/dL (NEGATIVE); NITRITE NEGATIVE (NEGATIVE); RED CELLS - URINE OCC /hpf (0-5); SPECIFIC GRAVITY 1.015 (1.005-1.020); UROBILINOGEN NORMAL (NORMAL); WHITE CELLS - URINE 0-5 /hpf (NEGATIVE)
--- NOTE | 2020-02-16 08:45 | NUR ---
RDVD PT FROM ER, VIA HOSPITAL STAFF AND FAMILY AT THE BEDSIDE. PT IS ALERT, BUT CONFUSED, DAUGHTER ANSWERED ADMIT QUESTIONS. IV LOCATED TO LEFT FOREARM CURRENTLY SL. DENIES NEEDS AT THIS TIME, WILL CONT TO MONITOR.
[2020-02-16 08:58] VITALS: BMI 29.3
--- NOTE | 2020-02-16 13:06 | NUR ---
CALLED TELE FOR MONITOR, NONE AVALIABLE, PUT ON WAITLIST. SCDS ON.
[2020-02-16 13:47] VITALS: BP 136/74
--- NOTE | 2020-02-16 15:53 | NUR ---
Rehab Prescreening Consult recieved and the chart has been reviewed. She is a new admit apparently from [facility]. PT attempted to eval her this afternoon unsuccessfully. They indicated she was trying to take off her gown and daughter at bedside. She is not appropriate for acute rehab at this time. Rehab will follow. Shey Shields RN Clinical Liaison, Rehab
[2020-02-16 18:03] VITALS: BP 133/67
[2020-02-17 00:01] VITALS: BP 162/67
[2020-02-17 05:16] VITALS: BP 154/72
--- NOTE | 2020-02-17 05:55 | NUR ---
PT HAS NOT BEEN TO SLEEP. AUDITORY AND VISUAL HALLUCINATIONS. ATTENDING OTHERS. PT PULLING AT C-COLLAR AND C/O HEAD AND NECK PAIN 03/08. GAVE TYLENOL FOR PAIN. ADJUSTED C-COLLAR BACK IN PLACE. DAUGHTER STAYED WITH PT LAST NIGHT. PT TOLD DAUGHTER SHE HASN'T SLEPT IN A WEEK.
[2020-02-17 08:16] LABS: BASOPHILS 0.4 % (0-2); EOSINOPHILS 1.3 % (0-7); HEMATOCRIT 38.3 % (36.0-48.0); HEMOGLOBIN 12.4 g/dL (12-16); IMMATURE GRANULOCYTES 0.2 % (0-5); LYMPHOCYTES 19.7 % (15-50); MCH 28.5 pg (26.0-34.0); MCHC 32.4 g/dL (31.0-37.0); MEAN PLATELET VOLUME 10.4 fL (7.4-10.4); MONOCYTES 6.7 % (2-11); NEUTROPHILS 71.7 % (40-80); PLATELET COUNT 264 10x3/uL (130-400); RBC 4.35 10x6/uL (4.00-5.40); RDW 12.7 % (11.5-14.5); WBC 8.5 10x3/uL (4.8-10.8)
[2020-02-17 08:45] LABS: CALC OSMOLALITY 262 mosm/kg (275-300); CALCIUM 8.3 mg/dL (8.5-10.1); CHLORIDE - SERUM 98 mmol/L (98-107); CREATININE - SERUM 0.7 mg/dL (0.6-1.3); GLUCOSE 106 mg/dL (74-106); MAGNESIUM - SERUM 1.6 mg/dL (1.8-2.4); PHOSPHOROUS 2.7 mg/dL (2.5-4.9); POTASSIUM - SERUM 3.1 mmol/L (3.5-5.1); SODIUM 131 mmol/L (136-145); eGFR NON AFRICAN AMERICAN 85 mL/min (90-120)
[2020-02-17 08:49] LABS: UREA NITROGEN 13 mg/dL (7-18)
[2020-02-17 10:39] VITALS: BP 186/99
[2020-02-17 15:19] VITALS: BP 165/60
[2020-02-17 18:37] VITALS: BP 150/81
[2020-02-17 20:21] VITALS: BP 156/74
--- NOTE | 2020-02-17 22:40 | NUR ---
PT HAS BEEN AWAKE WITH NO SLEEP FOR 40 HOURS NOW. PT IS INCREASINGLY DELIRIOUS, SEEING AND TALKING TO PEOPLE AND THINGS THAT ARE NOT THERE AND REACHING FOR THINGS THAT ARE NOT THERE. PAGED DR. NAILS. RECEIVED ORDER FOR TEMAZEPAM 7.5 MG. DID NOT GIVE MED TO PT SHE IS FINALLY ASLEEP. RETURNED TEMAZEPAM TO [facility] WITH NURSE WITNESS. WILL CONTINUE TO MONITOR. SON AT BESIDE ROOMING IN.
[2020-02-18 00:25] VITALS: BP 160/78
--- NOTE | 2020-02-18 06:45 | NUR ---
PT SLEPT SOUNDLY THROUGH NIGHT. IS AWAKE AND ALERT THIS MORNING. DOES NOT REMEMBER COMING TO HOSPITAL OR ANY TIME LAST COUPLE OF DAYS. PT ORIENTED EASILY AND IS SITTING UP IN BED ASKING QUESTIONS. GAVE TYLENOL FOR NECK PAIN 02/06. WILL CONTINUE TO MONITOR.
[2020-02-18 08:44] VITALS: BP 147/72
--- NOTE | 2020-02-18 09:00 | NUR ---
ALERT AND ORIENTED X3 WITH PATIENT AND FAMILY STTING SHE SLEPT WELL. C-COLLAR INTACT WITH NO DEMINISHED VISUAL ACUITY WITH BRUISING TO ORBITAL AREA. GENERALIZED WEAKNESS NOTED WITH FALL PRECAUTIONS IN PLACE. SCD'S ON AT THIS TIME. ENCOURAGED TO USE CALL LIGHT FOR ASSSIT.
[2020-02-18 09:38] LABS: HEMATOCRIT 37.5 % (36.0-48.0); HEMOGLOBIN 12.3 g/dL (12-16); LYMPHOCYTES 20.3 % (15-50); MCH 28.9 pg (26.0-34.0); MCHC 32.8 g/dL (31.0-37.0); MEAN PLATELET VOLUME 9.7 fL (7.4-10.4); PLATELET COUNT 238 10x3/uL (130-400); RBC 4.26 10x6/uL (4.00-5.40); RDW 12.7 % (11.5-14.5); WBC 8.7 10x3/uL (4.8-10.8)
[2020-02-18 09:56] LABS: CALC OSMOLALITY 263 mosm/kg (275-300); CALCIUM 8.2 mg/dL (8.5-10.1); CARBON DIOXIDE 24.2 mmol/L (21.0-32.0); CHLORIDE - SERUM 99 mmol/L (98-107); CREATININE - SERUM 0.6 mg/dL (0.6-1.3); GLUCOSE 90 mg/dL (74-106); MAGNESIUM - SERUM 1.6 mg/dL (1.8-2.4); POTASSIUM - SERUM 3.1 mmol/L (3.5-5.1); SODIUM 132 mmol/L (136-145); eGFR NON AFRICAN AMERICAN > 90 mL/min (90-120)
[2020-02-18 09:59] LABS: UREA NITROGEN 9 mg/dL (7-18)
[2020-02-18 12:02] VITALS: BP 140/67
[2020-02-18 16:07] VITALS: BP 130/55
[2020-02-18 20:25] VITALS: BP 149/74
[2020-02-19 05:04] LABS: HEMATOCRIT 37.6 % (36.0-48.0); HEMOGLOBIN 12.5 g/dL (12-16); LYMPHOCYTES 20.7 % (15-50); MCH 29.4 pg (26.0-34.0); MCHC 33.2 g/dL (31.0-37.0); MCV 88.5 fL (80.0-100.0); MEAN PLATELET VOLUME 10.2 fL (7.4-10.4); NEUTROPHILS 70.6 % (40-80); PLATELET COUNT 215 10x3/uL (130-400); RBC 4.25 10x6/uL (4.00-5.40); RDW 12.6 % (11.5-14.5); WBC 8.3 10x3/uL (4.8-10.8)
[2020-02-19 05:10] VITALS: BP 151/78
[2020-02-19 05:24] LABS: CALC OSMOLALITY 263 mosm/kg (275-300); CARBON DIOXIDE 26.8 mmol/L (21.0-32.0); CHLORIDE - SERUM 100 mmol/L (98-107); CREATININE - SERUM 0.7 mg/dL (0.6-1.3); GLUCOSE 86 mg/dL (74-106); MAGNESIUM - SERUM 1.6 mg/dL (1.8-2.4); PHOSPHOROUS 2.6 mg/dL (2.5-4.9); POTASSIUM - SERUM 3.3 mmol/L (3.5-5.1); SODIUM 133 mmol/L (136-145); UREA NITROGEN 9 mg/dL (7-18); eGFR NON AFRICAN AMERICAN 85 mL/min (90-120)
[2020-02-19 08:36] VITALS: BP 155/64
--- NOTE | 2020-02-19 10:30 | NUR ---
PT A&O X4. LYING DOWN IN BED, HOB 15 DEGREES. REPORTS PAIN AT 5/10 IN HEAD, ADMIN TYLONAL PER ORDERS. C/O BRUISES ON LEFT BUTTOCK, LEFT LEG AND FACE. PT HAS C-COLLAR IN PLACE. PT HAS L FOREARM PIV, PATENT AND INFUSING NS @ 50ML/HR. PT HAS H/O OF FALLS. BED MARIBELL ON AND EDUCATED ON USING CALL LIGHT FOR NEEDS. PT HAS SCDS ON AND WERE REMOVED FOR SKIN ASSESSMENT. SKIN IS WARM, DRY AND INTACT. PT ABLE TO USE BEDPAN WITH ASSIST. PT NOT ABLE TO TOLERATE MEDS WHOLE, THEY WERE CRUSHED AND MIXED WITH APPLESAUCE. PT STATED THAT SHE WANTED TO WALK TO TODAY WITH PT. SHE WALKED 100FT WITH WALKER AND STANDBY ASSIST. BED LOW, RAILS X2. CL IN REACH. PT VERBALIZED UNDERSTANDING. WILL CONTINUE TO MONITOR.
[2020-02-19 12:24] VITALS: BP 143/62
[2020-02-19 12:44] VITALS: BMI 29.2
--- NOTE | 2020-02-19 14:46 | MORECARE ---
CASE MANAGEMENT DISCHARGE SUMMARY PATIENT: WINSTON CUNNINGHAM UNIT: [id number] ADM DATE: 02/16/20 AGE: 79 : 38 SEX: F ROOM/BED: D.2206 AUTHOR: PRATEEK INIGUEZ PHYSICIAN: REFERRING PHYSICIAN: ANUPAM HAWKINS MD DATE OF SERVICE: 02/19/20 Discharge Plan Patient Name: WINSTON CUNNINGHAM [facility] [facility] 1940 Planned Disposition: Custodial Facility Anticipated Discharge Date: Discharge Date: Expected LOS: Initial Reviewer: [email or web address] Initial Review Date: 02/16/2020 Generated: 02/19/20 3:46 pm Patient Name: WINSTON CUNNINGHAM Page [id number] at 1446 All edits/amendments must be made on the electronic document DICTATION DATE: 02/19/20 1446 CLINICAL SAFETY SPECIALIST: GERMAINE 02/19/20 1446 RPT#: [id number] DC DATE: STATUS: ADM IN [facility] [address] [place] [address] END OF REPORT
--- NOTE | 2020-02-19 14:55 | MORECARE ---
CASE MANAGEMENT DISCHARGE SUMMARY PATIENT: WINSTON CUNNINGHAM UNIT: [id number] ADM DATE: 02/16/20 AGE: 79 : 38 SEX: F ROOM/BED: D.2206 AUTHOR: PRATEEK INIGUEZ PHYSICIAN: REFERRING PHYSICIAN: ANUPAM HAWKINS MD DATE OF SERVICE: 02/19/20 Discharge Plan Patient Name: WINSTON UCNNINGHAM Facility: [facility]:[place] : 1940 Planned Disposition: Nursing Home Facility Anticipated Discharge Date: Discharge Date: Expected LOS: Initial Reviewer: [email or web address] Initial Review Date: 02/16/2020 Generated: 02/19/20 3:54 pm DCPIA - Discharge Planning Initial Assessment Updated by [email or web address]: Marlen Gilmore on 02/19/20 2:47 pm * Is the patient Alert and Oriented? Yes * PCP SHRUTHI * [facility] * Preadmission Environment Nursing Home Facility * Facility Name [facility] * ADLs Partial Dependent * Partial ADLs (Assistance needed) Ambulation Medication Management * Equipment None * List name and contact numbers for known caregivers / representatives who currently or will assist patient after discharge: JESENIA (DAUGHTER) [phone] * Verbal permission to speak to the caregivers and representatives has been obtained from the patient. Yes * Community resources currently utilized None * Additional services required to return to the preadmission environment? Yes * Can the patient safely return to the preadmission environment? Yes * Has this patient been hospitalized within the prior 30 days at any hospital? Yes Last DP export: 02/19/20 1:46 p Patient Name: WINSTON CUNNINGHAM Page [id number] at 1455 All edits/amendments must be made on the electronic document DICTATION DATE: 02/19/201453 RESIDENT DIRECTOR: GERMAINE 02/19/201453 RPT#: [id number] DC DATE: STATUS: ADM IN [facility] [address] [place] [address] END OF REPORT
--- NOTE | 2020-02-19 15:02 | MORECARE ---
CASE MANAGEMENT DISCHARGE SUMMARY PATIENT: WINSTON CUNNINGHAM UNIT: [id number] ADM DATE: 02/16/20 AGE: 79 : 38 SEX: F ROOM/BED: D.2206 AUTHOR: PRATEEK INIGUEZ PHYSICIAN: REFERRING PHYSICIAN: ANUPAM HAWKINS MD DATE OF SERVICE: 02/19/20 Discharge Plan Patient Name: WINSTON CUNNINGHAM Facility: [facility]:[place] : 1940 Planned Disposition: Long-Term Facility Anticipated Discharge Date: Discharge Date: Expected LOS: Initial Reviewer: [email or web address] Initial Review Date: 02/16/2020 Generated: 02/19/20 4:02 pm Comments DCP- Discharge Planning Updated by [email or web address]: Marlen Gilmore on 02/19/20 1:[address] Patient Name: WINSTON CUNNINGHAM Admission Status: ER Accout number: [id number] Admission Date: 02-16-2020 : 1940 Admission Diagnosis: Attending: ANUPAM HAWKINS Current LOS: 3 Anticipated DC Date: Planned Disposition: Long-Term Facility Primary Insurance: MEDICARE A & B Discharge Planning Comments: CM met with patient & daughter to complete initial dc planning assessment. CM educated patient on the CM role and verbal consent given by patient to complete assessment. Patient lived at home with her son stayed off and on. She was recently was discharged from the hospital to [facility] inpatient rehab and they discharged her to [facility].. At discharge patient is unsure of where she should go for a safe discharge. We spoke about [place], [place], [facility] and [facility]. They had a lot of questions that needed answered before they make a decision. Patient denied known discharge needs at this time. CM will continue to follow and will assist as needed with dc plans/needs. Cooker Syrup: Marlen Gilmore DCPIA - Discharge Planning Initial Assessment Updated by [email or web address]: Marlen Gilmore on 02/19/20 2:47 pm * Is the patient Alert and Oriented? Yes * PCP SHRUTHI * [facility] * Preadmission Environment Long-Term Facility * Facility Name [facility] * ADLs Partial Dependent * Partial ADLs (Assistance needed) Ambulation Medication Management * Equipment None * List name and contact numbers for known caregivers / representatives who currently or will assist patient after discharge: JESENIA (DAUGHTER) [phone] * Verbal permission to speak to the caregivers and representatives has been obtained from the patient. Yes * Community resources currently utilized None * Additional services required to return to the preadmission environment? Yes * Can the patient safely return to the preadmission environment? Yes * Has this patient been hospitalized within the prior 30 days at any hospital? Yes Last DP export: 02/19/20 1:55 p Patient Name: WINSTON CUNNINGHAM Page 01343 at 1502 All edits/amendments must be made on the electronic document DICTATION DATE: 02/19/201501 FAMILY SERVICES COORDINATOR: GERMAINE 02/19/20 1502 RPT#: [id number] DC DATE: STATUS: ADM IN [facility] [address] [place] [address] END OF REPORT
--- NOTE | 2020-02-19 15:31 | MORECARE ---
CASE MANAGEMENT DISCHARGE SUMMARY PATIENT: WINSTON CUNNINGHAM UNIT: [id number] ADM DATE: 02/16/20 AGE: 79 : 38 SEX: F ROOM/BED: D.2206 AUTHOR: PRATEEK INIGUEZ PHYSICIAN: REFERRING PHYSICIAN: ANUPAM HAWKINS MD DATE OF SERVICE: 02/19/20 Discharge Plan Patient Name: WINSTON CUNNINGHAM Facility: [facility]:[place] : 1940 Planned Disposition: Group Home Facility Anticipated Discharge Date: Discharge Date: Expected LOS: Initial Reviewer: [email or web address] Initial Review Date: 02/16/2020 Generated: 02/19/20 4:30 pm Comments DCP- Discharge Planning Updated by [id number]: Marlen Gilmore on 02/19/20 1:[address] Patient Name: WINSTON CUNNINGHAM Admission Status: ER Accout number: [id number] Admission Date: 02-16-2020 : 1940 Admission Diagnosis: Attending: ANUPAM HAWKINS Current LOS: 3 Anticipated DC Date: Planned Disposition: Group Home Facility Primary Insurance: MEDICARE A & B Discharge Planning Comments: CM met with patient & daughter to complete initial dc planning assessment. CM educated patient on the CM role and verbal consent given by patient to complete assessment. Patient lived at home with her son stayed off and on. She was recently was discharged from the hospital to [facility] inpatient rehab and they discharged her to [facility].. At discharge patient is unsure of where she should go for a safe discharge. We spoke about [place], [place], [facility] and [facility]. They had a lot of questions that needed answered before they make a decision. Patient denied known discharge needs at this time. CM will continue to follow and will assist as needed with dc plans/needs. Ship Purser: Marlen Gilmore DCPIA - Discharge Planning Initial Assessment Updated by [email or web address]: Marlen Gilmore on 02/19/20 2:47 pm * Is the patient Alert and Oriented? Yes * PCP SHRUTHI * [facility] * Preadmission Environment Group Home Facility * Facility Name [facility] * ADLs Partial Dependent * Partial ADLs (Assistance needed) Ambulation Medication Management * Equipment None * List name and contact numbers for known caregivers / representatives who currently or will assist patient after discharge: JESENIA (DAUGHTER) [phone] * Verbal permission to speak to the caregivers and representatives has been obtained from the patient. Yes * Community resources currently utilized None * Additional services required to return to the preadmission environment? Yes * Can the patient safely return to the preadmission environment? Yes * Has this patient been hospitalized within the prior 30 days at any hospital? Yes External Providers External Provider: [facility] Next Contact Date: Service Request Date: Service Type: Resolution: Reviewer: Comments: Last DP export: 02/19/20 2:02 p Patient Name: WINSTON CUNNINGHAM Page [phone] at 1531 All edits/amendments must be made on the electronic document DICTATION DATE: 02/19/20 153 TERRITORY OUTSIDE SALES MANAGER: GERMAINE 02/19/201529 RPT#: [id number] DC DATE: STATUS: ADM IN [facility] [address] [place] [address] END OF REPORT
--- NOTE | 2020-02-19 15:38 | MORECARE ---
CASE MANAGEMENT DISCHARGE SUMMARY PATIENT: WINSTON CUNNINGHAM UNIT: [id number] ADM DATE: 02/16/20 AGE: 79 : 38 SEX: F ROOM/BED: D.2206 AUTHOR: PRATEEK INIGUEZ PHYSICIAN: REFERRING PHYSICIAN: ANUPAM HAWKINS MD DATE OF SERVICE: 02/19/20 Discharge Plan Patient Name: WINSTON CUNNINGHAM Facility: [facility]:[place] : 1940 Planned Disposition: Group Home Facility Anticipated Discharge Date: Discharge Date: Expected LOS: Initial Reviewer: [email or web address] Initial Review Date: 02/16/2020 Generated: 02/19/20 4:38 pm Comments DCP- Discharge Planning Updated by [id number]: Marlen Gilmore on 02/19/20 2:[address] FAMILY WOULD LIKE TO GO TO [facility] THEN GO TO [facility] WHEN SHE IS STRONGER. JOLLY SIGNED AND IMM SERVED AND EXPLAINED. CM TO FOLLOW AND ASSIST NEEDED DCP- Discharge Planning Updated by [email or web address]: Marlen Gilmore on 02/19/20 1:[address] Patient Name: WINSTON CUNNINGHAM Admission Status: ER Accout number: [id number] Admission Date: 02-16-2020 : 1940 Admission Diagnosis: Attending: ANUPAM HAWKINS Current LOS: 3 Anticipated DC Date: Planned Disposition: Group Home Facility Primary Insurance: MEDICARE A & B Discharge Planning Comments: CM met with patient & daughter to complete initial dc planning assessment. CM educated patient on the CM role and verbal consent given by patient to complete assessment. Patient lived at home with her son stayed off and on. She was recently was discharged from the hospital to [facility] inpatient rehab and they discharged her to [facility].. At discharge patient is unsure of where she should go for a safe discharge. We spoke about [facility] and [facility]. They had a lot of questions that needed answered before they make a decision. Patient denied known discharge needs at this time. CM will continue to follow and will assist as needed with dc plans/needs. Health Insurance Adjuster: Marlen Gilmore DCPIA - Discharge Planning Initial Assessment Updated by [email or web address]: Marlen Gilmore on 02/19/20 2:47 pm * Is the patient Alert and Oriented? Yes * PCP SHRUTHI * [facility] * Preadmission Environment Group Home Facility * Facility Name [facility] * ADLs Partial Dependent * Partial ADLs (Assistance needed) Ambulation Medication Management * Equipment None * List name and contact numbers for known caregivers / representatives who currently or will assist patient after discharge: DARRIN (DAUGHTER) [phone] * Verbal permission to speak to the caregivers and representatives has been obtained from the patient. Yes * Community resources currently utilized None * Additional services required to return to the preadmission environment? Yes * Can the patient safely return to the preadmission environment? Yes * Has this patient been hospitalized within the prior 30 days at any hospital? Yes Coverage Notice Reviewer: [email or web address] Carole Gilmore Notice Issued Date-Time: 02/19/2020 15:30 Notice Type: IM Discharge Notice Notice Delivered To: Family Member Relationship to Patient: Daughter Acid Patroller Name: darrin Delivery Method: HAND - Hand Delivered Huong Days: Prior Verbal Notification: Recipient Understood Notice: Yes Recipient Signature: Yes Med Rec Note Co-signed by Attending: Coverage Notice Comment: imm served and explained Reviewer: [id number] Carole Gilmore Notice Issued Date-Time: 02/19/2020 15:30 Notice Type: Patient Choice Letter Notice Delivered To: Family Member Relationship to Patient: Bia Acid Patroller Name: darrin Delivery Method: HAND - Hand Delivered Huong Days: Prior Verbal Notification: Recipient Understood Notice: Yes Recipient Signature: Yes Med Rec Note Co-signed by Attending: Coverage Notice Comment: 1-kulkarni Mallory 2-[employer] Last DP export: 02/19/20 2:31 p Patient Name: WINSTON CUNNINGHAM Page 27533 at 1538 All edits/amendments must be made on the electronic document DICTATION DATE: 02/19/201537 AGRICULTURAL PRODUCTION ENGINEER: GERMAINE 02/19/201537 RPT#: [id number] DC DATE: STATUS: ADM IN [facility] [address] [place] [address] END OF REPORT
[2020-02-19 16:15] VITALS: BP 156/76
[2020-02-19 20:27] VITALS: BP 150/67
--- NOTE | 2020-02-19 20:30 | NUR ---
LYING IN BED. ALERT AND ORIENTED X3. CONFUSED TO TIME. BRUISES NOTED TO FACE, BUTTOCKS AND LEGS. C-COLLAR IN USE. RESP EVEN AND NONLABORED. RATES PAIN IN BACK AND SHOULDERS 5. NS @ 50 MLHR INFUSING IN LT FOREARM. BED ALARM IN USE. SR ELEVATED X2. CL IN REACH. TELEMETRY SHOWS SB WITH RATE OF 59.
[2020-02-20 00:33] VITALS: BP 161/72
--- NOTE | 2020-02-20 02:30 | NUR ---
LYING IN BED WITH EYES CLOSED. RESP EVEN AND NONLABORED. NO DISTRESS. BED ALARM ON. CL IN REACH.
[2020-02-20 04:00] VITALS: BP 146/69
[2020-02-20 05:54] LABS: BASOPHILS 0.6 % (0-2); EOSINOPHILS 9.3 % (0-7); HEMATOCRIT 36.4 % (36.0-48.0); HEMOGLOBIN 11.8 g/dL (12-16); IMMATURE GRANULOCYTES 0.3 % (0-5); LYMPHOCYTES 24.3 % (15-50); MCH 28.6 pg (26.0-34.0); MCHC 32.4 g/dL (31.0-37.0); MCV 88.3 fL (80.0-100.0); MEAN PLATELET VOLUME 10.5 fL (7.4-10.4); NEUTROPHILS 59.5 % (40-80); PLATELET COUNT 235 10x3/uL (130-400); RBC 4.12 10x6/uL (4.00-5.40); RDW 12.8 % (11.5-14.5); WBC 7.8 10x3/uL (4.8-10.8)
[2020-02-20 06:31] LABS: CALC OSMOLALITY 269 mosm/kg (275-300); CARBON DIOXIDE 25.1 mmol/L (21.0-32.0); CHLORIDE - SERUM 103 mmol/L (98-107); CREATININE - SERUM 0.6 mg/dL (0.6-1.3); GLUCOSE 85 mg/dL (74-106); MAGNESIUM - SERUM 1.6 mg/dL (1.8-2.4); PHOSPHOROUS 2.5 mg/dL (2.5-4.9); POTASSIUM - SERUM 3.6 mmol/L (3.5-5.1); SODIUM 136 mmol/L (136-145); UREA NITROGEN 9 mg/dL (7-18); eGFR NON AFRICAN AMERICAN > 90 mL/min (90-120)
[2020-02-20 09:01] VITALS: BP 143/61
[2020-02-20] MEDS ORDERED: LEXAPRO10 MG PO (12:07)
[2020-02-20 12:21] VITALS: Ht 157.5 cm; Wt 72.6 kg
[2020-02-20 12:37] VITALS: BP 146/68
--- NOTE | 2020-02-20 12:37 | MORECARE ---
CASE MANAGEMENT DISCHARGE SUMMARY PATIENT: WINSTON CUNNINGHAM UNIT: [id number] ADM DATE: 02/16/20 AGE: 79 : 38 SEX: F ROOM/BED: D.2206 AUTHOR: PRATEEK INIGUEZ PHYSICIAN: REFERRING PHYSICIAN: ANUPAM HAWKINS MD DATE OF SERVICE: 02/20/20 Discharge Plan Patient Name: WINSTON CUNNINGHAM Facility: [facility]:[place] : 1940 Planned Disposition: Jail Facility Anticipated Discharge Date: Discharge Date: Expected LOS: Initial Reviewer: [id number] Initial Review Date: 02/16/2020 Generated: 02/20/20 1:36 pm Comments DCP- Discharge Planning Updated by [email or web address]: Marlen Gilmore on 02/20/20 11:[address] PATIENT WILL BE DISCHARGED TO [facility] TODAY, THEY WILL PICK HER UP BETWEEN 1:30-2:00. SHE WILL GO TO A SKILLED BED. DCP- Discharge Planning Updated by [email or web address]: Marlen Gilmore on 02/19/20 2:[address] FAMILY WOULD LIKE TO GO TO [facility] THEN GO TO [facility] WHEN SHE IS STRONGER. JOLLY SIGNED AND IMM SERVED AND EXPLAINED. CM TO FOLLOW AND ASSIST NEEDED DCP- Discharge Planning Updated by [id number]: Marlen Gilmore on 02/19/20 1:[address] Patient Name: WINSTON CUNNINGHAM Admission Status: ER Accout number: [id number] Admission Date: 02-16-2020 : 1940 Admission Diagnosis: Attending: ANUPAM HAWKINS Current LOS: 3 Anticipated DC Date: Planned Disposition: Jail Facility Primary Insurance: MEDICARE A & B Discharge Planning Comments: CM met with patient & daughter to complete initial dc planning assessment. CM educated patient on the CM role and verbal consent given by patient to complete assessment. Patient lived at home with her son stayed off and on. She was recently was discharged from the hospital to [facility] inpatient rehab and they discharged her to [facility].. At discharge patient is unsure of where she should go for a safe discharge. We spoke about [place], [place], [facility] and [facility]. They had a lot of questions that needed answered before they make a decision. Patient denied known discharge needs at this time. CM will continue to follow and will assist as needed with dc plans/needs. Escrow Processor: Marlen Gilmore DCPIA - Discharge Planning Initial Assessment Updated by [email or web address]: Marlen Gilmore on 02/19/20 2:47 pm * Is the patient Alert and Oriented? Yes * PCP SHRUTHI * Pharmacy [facility] * Preadmission Environment Jail Facility * Facility Name [facility] * ADLs Partial Dependent * Partial ADLs (Assistance needed) Ambulation Medication Management * Equipment None * List name and contact numbers for known caregivers / representatives who currently or will assist patient after discharge: DARRIN (DAUGHTER) [phone] * Verbal permission to speak to the caregivers and representatives has been obtained from the patient. Yes * Community resources currently utilized None * Additional services required to return to the preadmission environment? Yes * Can the patient safely return to the preadmission environment? Yes * Has this patient been hospitalized within the prior 30 days at any hospital? Yes Coverage Notice Reviewer: [email or web address] Carole Gilmore Notice Issued Date-Time: 02/19/2020 15:30 Notice Type: IM Discharge Notice Notice Delivered To: Family Member Relationship to Patient: Daughter Business Analysis Consultant Name: darrin Delivery Method: HAND - Hand Delivered Huong Days: Prior Verbal Notification: Recipient Understood Notice: Yes Recipient Signature: Yes Med Rec Note Co-signed by Attending: Coverage Notice Comment: imm served and explained Reviewer: [id number] Carole Gilmore Notice Issued Date-Time: 02/19/2020 15:30 Notice Type: Patient Choice Letter Notice Delivered To: Family Member Relationship to Patient: Daughter Business Analysis Consultant Name: darrin Delivery Method: HAND - Hand Delivered Huong Days: Prior Verbal Notification: Recipient Understood Notice: Yes Recipient Signature: Yes Med Rec Note Co-signed by Attending: Coverage Notice Comment: 1-kulkarni Mallory 2-encore3 encompass Last DP export: 02/19/20 2:38 p Patient Name: WINSTON CUNNINGHAM Page [id number] at 1237 All edits/amendments must be made on the electronic document DICTATION DATE: 02/20/20 1236 CAN TECHNICIAN: GERMAINE 02/20/20 1236 RPT#: [id number] DC DATE: STATUS: ADM IN [facility] [address] [facility] [place] [address] END OF REPORT
--- NOTE | 2020-02-22 09:04 | MORECARE ---
CASE MANAGEMENT DISCHARGE SUMMARY PATIENT: WINSTON CUNNINGHAM UNIT: [id number] ADM DATE: 02/16/20 AGE: 79 : 38 SEX: F ROOM/BED: D.2206 AUTHOR: PRATEEK INIGUEZ PHYSICIAN: REFERRING PHYSICIAN: ANUPAM HAWKINS MD DATE OF SERVICE: 02/22/20 Discharge Plan Patient Name: WINSTON CUNNINGHAM Facility: [facility]:[place] : 1940 Planned Disposition: [facility] Facility Anticipated Discharge Date: Discharge Date: 02/20/2020 Expected LOS: 0 Initial Reviewer: [id number] Initial Review Date: 02/16/2020 Generated: 02/22/20 10:03 am Comments DCP- Discharge Planning Updated by [email or web address]: Marlen Gilmore on 02/20/20 11:[address] PATIENT WILL BE DISCHARGED TO [facility] TODAY, THEY WILL PICK HER UP BETWEEN 1:30-2:00. SHE WILL GO TO A SKILLED BED. DCP- Discharge Planning Updated by [id number]: Marlen Gilmore on 02/19/20 2:[address] FAMILY WOULD LIKE TO GO TO [facility] THEN GO TO [facility] WHEN SHE IS STRONGER. JOLLY SIGNED AND IMM SERVED AND EXPLAINED. CM TO FOLLOW AND ASSIST NEEDED DCP- Discharge Planning Updated by [email or web address]: Marlen Gilmore on 02/19/20 1:[address] Patient Name: WINSTON CUNNINGHAM Admission Status: ER Accout number: [id number] Admission Date: 02-16-2020 : 1940 Admission Diagnosis: Attending: ANUPAM HAWKINS Current LOS: 3 Anticipated DC Date: Planned Disposition: [facility] Facility Primary Insurance: MEDICARE A & B Discharge Planning Comments: CM met with patient & daughter to complete initial dc planning assessment. CM educated patient on the CM role and verbal consent given by patient to complete assessment. Patient lived at home with her son stayed off and on. She was recently was discharged from the hospital to [facility] inpatient rehab and they discharged her to [facility].. At discharge patient is unsure of where she should go for a safe discharge. We spoke about [place], [facility] and [facility]. They had a lot of questions that needed answered before they make a decision. Patient denied known discharge needs at this time. CM will continue to follow and will assist as needed with dc plans/needs. Mop Man: Marlen Gilmore DCPIA - Discharge Planning Initial Assessment Updated by [id number]: Marlen Gilmore on 02/19/20 2:47 pm * Is the patient Alert and Oriented? Yes * PCP SHRUTHI * Pharmacy [facility] * Preadmission Environment [facility] Facility * Facility Name [facility] * ADLs Partial Dependent * Partial ADLs (Assistance needed) Ambulation Medication Management * Equipment None * List name and contact numbers for known caregivers / representatives who currently or will assist patient after discharge: DARRIN (DAUGHTER) [phone] * Verbal permission to speak to the caregivers and representatives has been obtained from the patient. Yes * Community resources currently utilized None * Additional services required to return to the preadmission environment? Yes * Can the patient safely return to the preadmission environment? Yes * Has this patient been hospitalized within the prior 30 days at any hospital? Yes Coverage Notice Reviewer: [id number] Carole Gilmore Notice Issued Date-Time: 02/19/2020 15:30 Notice Type: IM Discharge Notice Notice Delivered To: Family Member Relationship to Patient: Daughter Concept Artist Name: darrin Delivery Method: HAND - Hand Delivered Huong Days: Prior Verbal Notification: Recipient Understood Notice: Yes Recipient Signature: Yes Med Rec Note Co-signed by Attending: Coverage Notice Comment: imm served and explained Reviewer: [id number] Carole Gilmore Notice Issued Date-Time: 02/19/2020 15:30 Notice Type: Patient Choice Letter Notice Delivered To: Family Member Relationship to Patient: Daughter Concept Artist Name: darrin Delivery Method: HAND - Hand Delivered Huong Days: Prior Verbal Notification: Recipient Understood Notice: Yes Recipient Signature: Yes Med Rec Note Co-signed by Attending: Coverage Notice Comment: 1-cayla Mallory 2-encore3 encompass Last DP export: 02/20/20 11:37 a Patient Name: WINSTON CUNNINGHAM Page [id number] at 0904 All edits/amendments must be made on the electronic document DICTATION DATE: 02/22/20 0904 DIRECTOR OF FLIGHT OPERATIONS: GERMAINE 02/22/20 09 RPT#: [id number] DC DATE:02/20/20 STATUS: DIS IN [facility] [address] [place] [address] END OF REPORT
== END 2020-02-20 15:49 | DRG 689 ==
LOC: D.ER 05:18 → D.MS 07:05 → OBSVTIME 07:05 → D.MS 07:05
PROVIDERS: Family Medicine; ADMIT Family Medicine; ATTEND Family Medicine
DX: N39.0 Urinary tract infection, site not specified (principal); G93.41 Metabolic encephalopathy; R41.82 Altered mental status, unspecified; E83.42 Hypomagnesemia; E87.6 Hypokalemia; I10 Essential (primary) hypertension; W19.XXXA Unspecified fall, initial encounter; E78.5 Hyperlipidemia, unspecified; E03.9 Hypothyroidism, unspecified; S12.000D Unspecified displaced fracture of first cervical vertebra, subsequent encounter for fracture with routine healing; S00.83XD Contusion of other part of head, subsequent encounter

== ENCOUNTER → 2020-04-17 13:43 | Outpatient (CLI) | payer MEDICARE, OTHER ==
[2020-02-20 12:21] VITALS: BMI 29.2
[~2020-04-17 13:43] MED LIST changes: +KLOR-CON 1010 MEQ PO; +LEXAPRO10 MG PO; +MACROBID100 MG PO; +THERMOTABS 1 GM1 GM PO; +VOLTAREN100 GM TOPICAL
== END | disposition home or self-care (01) ==
LOC: D.CT 13:43
PROVIDERS: ATTEND Neurological Surgery
DX: S12.112A Nondisplaced Type II dens fracture, initial encounter for closed fracture (principal)

== ENCOUNTER → 2020-05-27 11:11 | Outpatient (CLI) | payer MEDICARE, OTHER ==
[2020-02-20 12:21] VITALS: BMI 29.2
== END | disposition home or self-care (01) ==
LOC: D.CT 11:11
PROVIDERS: ATTEND Neurological Surgery
DX: S12.112D Nondisplaced Type II dens fracture, subsequent encounter for fracture with routine healing (principal)